=== PATIENT | male | born 1995 | race American Indian/Alaskan Native ===

== ENCOUNTER 2018-10-19 17:35 | Emergency (ER) | payer SELFPAY ==
--- NOTE | 2018-10-19 18:05 | Emergency Department Report ---
Blank Doc - Documentation Documentation: This is a 23-year-old male that presents with hearing voices. Denies any SI/HI. Stated has been out of his psych medication for "years". This initial assessment/diagnostic orders/clinical plan/treatment(s) is/are subject to change based on patient's health status, clinical progression and re- assessment by fellow clinical providers in the ED. Further treatment and workup at subsequent clinical providers discretion. Patient/guardians urged not to elope from the ED as their condition may be serious if not clinically assessed and managed. Initial orders include: 1- Patient sent to MAIN ED for further evaluation and treatment 2- corset maker was notified to have patient be brought back [facility]. 3- RN was notified to keep patient as close range and observation until room available
[2018-10-19 18:45] LABS: BUN/Creatinine Ratio 10; Blood Urea Nitrogen 12 mg/dL (9-20); Calcium 9.8 mg/dL (8.4-10.2); Hemolysis Index 8
[2018-10-19 18:47] LABS: Hematocrit 41.9 % (35.5-45.6); Mean Corpuscular HGB Conc 34 % (32-34); Mean Corpuscular Volume 91 fl (84-94); Platelet Count 191 K/mm3 (140-440); Red Blood Count 4.61 M/mm3 (3.65-5.03); Red Cell Distribution Width 13.1 % (13.2-15.2)
[2018-10-19 18:55] LABS: Basophils % (Auto) 0.6 % (0.0-1.8); Eosinophils # (Auto) 0.2 K/mm3 (0.0-0.4); Lymphocytes # (Auto) 1.9 K/mm3 (1.2-5.4); Lymphocytes % (Auto) 40.1 % (13.4-35.0); Monocytes # (Auto) 0.3 K/mm3 (0.0-0.8); Monocytes % (Auto) 7.4 % (0.0-7.3)
[2018-10-19 19:01] LABS: Amorphous Crystals,Urine Few; Bacteria,Urine 1+ /HPF (Negative); Bilirubin,Urine NEG (Negative); Blood,Urine NEG (Negative); Color,Urine Yellow (Yellow); Mucus,Urine FEW /HPF; Protein,Urine <15 mg/dL mg/dL (Negative); RBC,Urine < 1.0 /HPF (0.0-6.0); WBC,Urine < 1.0 /HPF (0.0-6.0)
[2018-10-19 19:03] LABS: Amphetamine Screen,Urine PRESUMPTIVE NEGATIVE; Benzodiazepines Screen,Urine PRESUMPTIVE NEGATIVE; Methadone Screen,Urine PRESUMPTIVE NEGATIVE; Opiate Screen,Urine PRESUMPTIVE NEGATIVE
[2018-10-19 19:43] VITALS: BP 117/75
[2018-10-19 19:48] LABS: Cannabinoid Screen,Urine PRESUMPTIVE POSITIVE; Cocaine Screen,Urine PRESUMPTIVE POSITIVE
--- NOTE | 2018-10-19 21:06 | Emergency Department Report ---
ED Psych HPI - General Chief Complaint: Medical Clearance Stated Complaint: MED REFILL Time Seen by Provider: 10/19/18 17:45 Source: patient Mode of arrival: Ambulatory - History of Present Illness Initial Comments: Patient is a 23-year-old male with past medical history of bipolar disorder and depression and anxiety who states he is here to see if he can get placed back on his medications for depression and bipolar disorder. Patient denies any suicidal homicidal ideations at this time. Patient does not have a primary care physician. - Related Data Previous Rx's Medication Instructions Recorded Last Taken Type Divalproex ER [DepaKOTE ER] 500 mg PO QDAY #15 tablet 10/19/18 Unknown Rx OLANZapine [Zyprexa] 20 mg PO DAILY #15 tablet 10/19/18 Unknown Rx QUEtiapine [SEROquel] 200 mg PO BID #30 tablet 10/19/18 Unknown Rx Allergies Allergy/AdvReac Type Severity Reaction Status Date / Time No Known Allergies Allergy Unverified 10/19/18 17:39 ED Review of Systems ROS: Stated complaint: MED REFILL Other details as noted in HPI Comment: All other systems reviewed and negative ED Past Medical Hx - Past Medical History Previous Medical History?: Yes Hx Psychiatric Treatment: Yes (Bi polar, depression, anxiety) - Surgical History Past Surgical History?: No - Social History Smoking Status: Current Every Day Smoker Substance Use Type: Alcohol, Cocaine, Marijuana - Medications Home Medications: Home Medications Medication Instructions Recorded Confirmed Last Taken Type Divalproex ER [DepaKOTE ER] 500 mg PO QDAY #15 tablet 10/19/18 Unknown Rx OLANZapine [Zyprexa] 20 mg PO DAILY #15 tablet 10/19/18 Unknown Rx QUEtiapine [SEROquel] 200 mg PO BID #30 tablet 10/19/18 Unknown Rx ED Physical Exam - General Limitations: No Limitations General appearance: alert, in no apparent distress - Head Head exam: Present: atraumatic, normocephalic - Eye Eye exam: Present: normal appearance - ENT ENT exam: Present: mucous membranes moist - Neck Neck exam: Present: normal inspection - Respiratory Respiratory exam: Present: normal lung sounds bilaterally. Absent: respiratory distress, wheezes, rales, rhonchi - Cardiovascular Cardiovascular Exam: Present: regular rate, normal rhythm. Absent: systolic murmur, diastolic murmur, rubs, gallop - GI/Abdominal GI/Abdominal exam: Present: soft, normal bowel sounds. Absent: distended, tenderness, guarding, rebound - Rectal Rectal exam: Present: deferred - Extremities Exam Extremities exam: Present: normal inspection - Back Exam Back exam: Present: normal inspection - Neurological Exam Neurological exam: Present: alert, oriented X3 - Psychiatric Psychiatric exam: Present: normal affect, normal mood - Skin Skin exam: Present: warm, dry, intact, normal color. Absent: rash ED Course Vital Signs 10/19/18 10/19/18 17:49 19:42 Temperature 98.5 F 98.4 F Pulse Rate 89 74 Respiratory 18 15 Rate Blood Pressure 132/77 Blood Pressure 117/75 [Right] O2 Sat by Pulse 99 98 Oximetry ED Medical Decision Making - Lab Data Result diagrams: 10/19/18 18:10 10/19/18 18:10 - Medical Decision Making Patient seen by our mobile Sesler and ribs are determined that the patient was taking Depakote Seroquel Zyprexa. Patient be restarted on his medications be discharged home. Critical care attestation.: If time is entered above; I have spent that time in minutes in the direct care of this critically ill patient, excluding procedure time. ED Disposition Clinical Impression: Medication refill Disposition: DC-01 TO HOME OR SELFCARE Is pt being admited?: No Does the pt Need Aspirin: No Condition: Stable Instructions: Anxiety (ED), Bipolar Disorder (ED) Prescriptions: Divalproex ER [DepaKOTE ER] 500 mg PO QDAY #15 tablet QUEtiapine [SEROquel] 200 mg PO BID #30 tablet OLANZapine [Zyprexa] 20 mg PO DAILY #15 tablet Referrals: [facility] [Outside] - 3-5 Days Time of Disposition: 21:05
== END 2018-10-19 21:33 | disposition home or self-care (01) ==
LOC: ED 17:35
DX: F31.9 Bipolar disorder, unspecified (principal); F41.9 Anxiety disorder, unspecified; Z76.0 Encounter for issue of repeat prescription; F17.200 Nicotine dependence, unspecified, uncomplicated; F14.10 Cocaine abuse, uncomplicated; F12.10 Cannabis abuse, uncomplicated
CPT/HCPCS: 36415; 80048; 80307; 81001; 82962; 85025; 99284; G0480; 80320

== ENCOUNTER 2018-11-30 21:14 | Emergency (ER) | payer SELFPAY ==
[2018-11-30 21:40] VITALS: BP 128/76
--- NOTE | 2018-11-30 21:41 | Event Note ---
ED Screening Note ED Screening Note: here for med refill did not get filled in October denies hi denies si blunted and flat thought blocking here with sister This initial assessment/diagnostic orders/clinical plan/treatment(s) is/are subject to change based on patients health status, clinical progression and re- assessment by fellow clinical providers in the ED. Further treatment and workup at subsequent clinical providers discretion. Patient/guardian urged not to elope from the ED as their condition may be serious if not clinically assessed and managed. Initial orders include: JAIMIE
--- NOTE | 2018-12-01 05:40 | Emergency Department Report ---
ED General Adult HPI - General Chief complaint: Medical Clearance Stated complaint: RX Time Seen by Provider: 11/30/18 21:39 Source: patient Mode of arrival: Ambulatory Limitations: No Limitations - History of Present Illness Initial comments: Patient is a 23-year-old -[place] male history of bipolar and depression who presents for medication refill states she's been out of his medicines for 2 weeks there is no S amylase patient is alert oriented 3 exam shoulder steady gait patient appears well nourished nontoxic patient with no acute distress demonstrates appropriate mentation there is no SI no HI patient requests a referral to [facility] for psychiatry for medication refefill Onset/Timin -: days(s) Improves with: none Worsens with: none Treatments Prior to Arrival: none - Related Data Previous Rx's Medication Instructions Recorded Last Taken Type QUEtiapine [SEROquel] 200 mg PO BID #30 tablet 10/19/18 Unknown Rx Divalproex ER [Depakote ER] 500 mg PO QDAY #15 tablet 12/01/18 Unknown Rx OLANZapine [Zyprexa] 20 mg PO DAILY #15 tablet 12/01/18 Unknown Rx QUEtiapine [SEROquel] 200 mg PO BID #30 tablet 12/01/18 Unknown Rx Allergies Allergy/AdvReac Type Severity Reaction Status Date / Time No Known Allergies Allergy Verified 11/30/18 21:18 ED Review of Systems ROS: Stated complaint: RX Other details as noted in HPI Constitutional: denies: chills, fever Eyes: denies: eye pain, eye discharge, vision change ENT: denies: ear pain, throat pain Respiratory: denies: cough, shortness of breath, wheezing Cardiovascular: denies: chest pain, palpitations Endocrine: no symptoms reported Gastrointestinal: denies: abdominal pain, nausea, diarrhea Genitourinary: denies: urgency, dysuria Musculoskeletal: denies: back pain, joint swelling, arthralgia Skin: denies: rash, lesions Neurological: denies: headache, weakness, paresthesias Psychiatric: denies: anxiety, depression, auditory hallucinations, visual hallucinations, homicidal thoughts, suicidal thoughts Hematological/Lymphatic: denies: easy bleeding, easy bruising ED Past Medical Hx - Past Medical History Hx Psychiatric Treatment: Yes (Bi polar, depression, anxiety) - Social History Smoking Status: Current Every Day Smoker Substance Use Type: None - Medications Home Medications: Home Medications Medication Instructions Recorded Confirmed Last Taken Type QUEtiapine [SEROquel] 200 mg PO BID #30 tablet 10/19/18 Unknown Rx Divalproex ER [Depakote ER] 500 mg PO QDAY #15 tablet 12/01/18 Unknown Rx OLANZapine [Zyprexa] 20 mg PO DAILY #15 tablet 12/01/18 Unknown Rx QUEtiapine [SEROquel] 200 mg PO BID #30 tablet 12/01/18 Unknown Rx ED Physical Exam - General Limitations: No Limitations General appearance: alert, in no apparent distress - Head Head exam: Present: atraumatic, normocephalic - Eye Eye exam: Present: normal appearance, PERRL, EOMI Pupils: Present: normal accommodation - ENT ENT exam: Present: mucous membranes moist - Neck Neck exam: Present: normal inspection, full ROM. Absent: tenderness - Respiratory Respiratory exam: Present: normal lung sounds bilaterally. Absent: respiratory distress, wheezes, stridor, chest wall tenderness - Cardiovascular Cardiovascular Exam: Present: regular rate, normal rhythm, normal heart sounds. Absent: systolic murmur, diastolic murmur, rubs, gallop - GI/Abdominal GI/Abdominal exam: Present: soft, normal bowel sounds. Absent: distended, tenderness, bruit, hernia - Rectal Rectal exam: Present: deferred - Extremities Exam Extremities exam: Present: normal inspection - Back Exam Back exam: Present: normal inspection, full ROM. Absent: tenderness, rash noted - Neurological Exam Neurological exam: Present: alert, oriented X3, CN II-XII intact, normal gait, reflexes normal - Psychiatric Psychiatric exam: Present: normal affect, normal mood. Absent: depressed, agitated, anxious, flat affect, manic, homicidal ideation, suicidal ideation - Skin Skin exam: Present: warm, dry, intact, normal color. Absent: rash ED Course Vital Signs 11/30/18 11/30/18 21:20 21:38 Temperature 98.4 F 98.4 F Pulse Rate 103 H 106 H Respiratory 18 18 Rate Blood Pressure 128/76 128/76 O2 Sat by Pulse 100 100 Oximetry ED Medical Decision Making - Medical Decision Making plan medication refill for 3 days referral to [facility] for medication refill , pt verbalized agreement and understanding of discharge plan pt for dc to home in stable condition at this time. Critical care attestation.: If time is entered above; I have spent that time in minutes in the direct care of this critically ill patient, excluding procedure time. ED Disposition Clinical Impression: Medication refill Disposition: TO HOME OR SELFCARE Is pt being admited?: No Does the pt Need Aspirin: No Condition: Stable Instructions: Bipolar Disorder (ED), Depression (ED) Prescriptions: Divalproex ER [Depakote ER] 500 mg PO QDAY #15 tablet QUEtiapine [SEROquel] 200 mg PO BID #30 tablet OLANZapine [Zyprexa] 20 mg PO DAILY #15 tablet Referrals: [facility] [Outside] - [facility] Forms: Work/School Release Form(ED) Time of Disposition: 05:45
== END 2018-12-01 06:36 | disposition home or self-care (01) ==
LOC: ED 21:14
DX: F31.9 Bipolar disorder, unspecified (principal); F32.9 Major depressive disorder, single episode, unspecified; F41.9 Anxiety disorder, unspecified; F17.200 Nicotine dependence, unspecified, uncomplicated; Z79.899 Other long term (current) drug therapy; Z76.0 Encounter for issue of repeat prescription